=== PATIENT | female | born 1970 | race Caucasian/White ===

== ENCOUNTER 2024-10-24 13:12 | Outpatient (AMB) | payer MEDICARE, MEDICAID, SELFPAY ==
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
[2024-10-24 13:53] VITALS: BP 100/76; PULSE 66; RESP 16; TEMP 36.5; O2SAT 99
== END 2024-10-24 14:33 | disposition home or self-care (01) ==
LOC: HO.HMCFMS 13:13
PROVIDERS: Visit Provider Student in an Organized Health Care Education/Training Program
DX: F17.210 Nicotine dependence, cigarettes, uncomplicated (principal); S03.00XA Dislocation of jaw, unspecified side, initial encounter; R42 Dizziness and giddiness; R51.9 Headache, unspecified; Z96.22 Myringotomy tube(s) status; H66.90 Otitis media, unspecified, unspecified ear; J31.0 Chronic rhinitis; F43.10 Post-traumatic stress disorder, unspecified; K58.9 Irritable bowel syndrome, unspecified; K59.9 Functional intestinal disorder, unspecified; Z86.2 Personal history of diseases of the blood and blood-forming organs and certain disorders involving the immune mechanism; Z86.59 Personal history of other mental and behavioral disorders

== ENCOUNTER 2024-10-24 13:12 | Outpatient (REF) | payer MEDICARE, MEDICAID, SELFPAY ==
[2024-10-24 18:02] LABS: MANUAL DIFF FLAG NO
[2024-10-24 18:03] LABS: Hematocrit 38.7 % (37.0-47.0); Hemoglobin 12.7 g/dl (12.0-16.0); Imm Gran Abs Auto 0.02 X10*3/uL (0.00-0.03); Imm Gran Pct Auto 0.2 % (0.0-0.4); Lymphocytes Absolute Auto 3.1 X10*3/uL (1.2-4.9); Mean Corpuscular HGB Conc 32.8 g/dl (31.0-35.0); Mean Corpuscular Hemoglobin 30.0 pg (27.0-33.0); Mean Corpuscular Volume 91.5 fL (80.0-98.0); NRBC Abs Auto 0.000 X10*3/uL (0.0-0.012); NRBC Pct Auto 0.0 /100WBC (0.0-0.2); Platelet Count 281 X10*3/uL (160-400); Red Blood Count 4.23 X10*6/uL (4.20-5.50); White Blood Count 9.6 X10*3/uL (4.8-10.8)
[2024-10-24 18:53] LABS: Alanine Aminotransferase 19 U/L (0-31); Albumin Level 4.0 g/dL (3.5-5.0); Alkaline Phosphatase 93 U/L (39-117); Anion Gap 14 (12-20); Aspartate Amino Transferase 26 U/L (5-31); Blood Urea Nitrogen 9 mg/dL (9-16); Calcium 8.9 mg/dL (8.4-10.2); Carbon Dioxide 28 mmol/L (22-29); Chloride 104 mmol/L (96-108); Cholesterol 239 mg/dL (<200); Estimated Glomerular Filt Rate > 60; HDL Cholesterol 45 mg/dL (>40); Magnesium 2.2 mg/dL (1.6-2.6); Potassium 4.1 mmol/L (3.3-5.1); Sodium 142 mmol/L (135-145); Total Protein 7.0 g/dL (6.5-8.0); Triglycerides 225 mg/dL (<150)
[2024-10-24 19:13] LABS: Folate 4.5 ng/mL (> or = 4.0); Vitamin B12 327 pg/mL (200-900)
[2024-10-25 09:30] LABS: Syphilis Screen Nonreactive (Nonreactive)
[2024-10-25 09:49] LABS: HBS Num1 0.00 mIU/mL (0-7.99); HBsAGNum1 0.40 S/CO (0.00-0.99); HIV Num 1 0.09 S/CO (0.00-0.99); Hepatitis B Surface Antigen Negative (Negative); ~HepC Num1 0.09 S/CO (0.00-0.79); ~Hepatitis B Surface Antibody NONREACTIVE (Nonreactive); ~Hepatitis C Antibody Nonreactive (Nonreactive)
[2024-10-28 18:47] LABS: Vit B3 - Nicotinic Acid <20 ng/mL (see note)
[2024-10-29 19:09] LABS: Chlamydia Trachomatis IgA <1:16 titer (<1:16)
[2024-10-30 16:39] LABS: VITAMIN D (1,25 OH) D3 11 pg/mL; Vit D (1,25-Dihydroxy) Total 39 pg/mL (18-72); Vitamin D (1,25 OH) D2 28 pg/mL
== END 2024-10-24 13:13 | disposition home or self-care (01) ==
LOC: HO.HKASLDS 13:12
PROVIDERS: Visit Provider Student in an Organized Health Care Education/Training Program
DX: Z76.89 Persons encountering health services in other specified circumstances (principal); Z01.89 Encounter for other specified special examinations; Z13.6 Encounter for screening for cardiovascular disorders; Z11.3 Encounter for screening for infections with a predominantly sexual mode of transmission; Z13.31 Encounter for screening for depression; Z13.1 Encounter for screening for diabetes mellitus; Z13.220 Encounter for screening for lipoid disorders; Z71.9 Counseling, unspecified; Z13.9 Encounter for screening, unspecified; Z12.31 Encounter for screening mammogram for malignant neoplasm of breast; S03.00XA Dislocation of jaw, unspecified side, initial encounter; R42 Dizziness and giddiness; R51.9 Headache, unspecified; H66.90 Otitis media, unspecified, unspecified ear; J31.0 Chronic rhinitis; F43.10 Post-traumatic stress disorder, unspecified; K58.9 Irritable bowel syndrome, unspecified; K59.9 Functional intestinal disorder, unspecified; F17.210 Nicotine dependence, cigarettes, uncomplicated; Z86.2 Personal history of diseases of the blood and blood-forming organs and certain disorders involving the immune mechanism; Z96.22 Myringotomy tube(s) status; Z86.59 Personal history of other mental and behavioral disorders; Z79.899 Other long term (current) drug therapy
CPT/HCPCS: 36415; 80053; 80061; 82607; 82652; 82746; 83036; 83735; 84252; 84425; 84443; 84591; 85025; 86631; 86632; 86706; 86780; 86803; 87340; 87389; 99202

== ENCOUNTER 2024-11-03 14:29 | Outpatient (AMB) | payer MEDICARE, MEDICAID, SELFPAY ==
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
[2024-11-03 14:37] VITALS: BP 101/51; PULSE 74; RESP 16; TEMP 36.6; O2SAT 99
== END 2024-11-03 15:20 | disposition home or self-care (01) ==
LOC: HO.HMCFMS 14:30
PROVIDERS: Visit Provider Student in an Organized Health Care Education/Training Program
DX: R73.03 Prediabetes (principal); E78.2 Mixed hyperlipidemia; E78.00 Pure hypercholesterolemia, unspecified; E56.9 Vitamin deficiency, unspecified; R21 Rash and other nonspecific skin eruption; D51.0 Vitamin B12 deficiency anemia due to intrinsic factor deficiency

== ENCOUNTER → 2024-11-03 14:29 | Outpatient (BNVA) | payer MEDICARE, MEDICAID, SELFPAY | PROVIDERS: Visit Provider Student in an Organized Health Care Education/Training Program | DX: R73.03 Prediabetes (principal); E78.2 Mixed hyperlipidemia; E78.00 Pure hypercholesterolemia, unspecified; E56.9 Vitamin deficiency, unspecified; R21 Rash and other nonspecific skin eruption; D51.0 Vitamin B12 deficiency anemia due to intrinsic factor deficiency; K58.9 Irritable bowel syndrome, unspecified; K59.9 Functional intestinal disorder, unspecified; Z86.2 Personal history of diseases of the blood and blood-forming organs and certain disorders involving the immune mechanism; Z86.59 Personal history of other mental and behavioral disorders; Z79.899 Other long term (current) drug therapy; Z13.31 Encounter for screening for depression | CPT/HCPCS: 96127; 99212 ==

== ENCOUNTER 2024-11-26 12:35 | Outpatient (REF) | payer MEDICARE, MEDICAID, SELFPAY ==
[2024-11-26 13:27] LABS: Hematocrit 39.7 % (37.0-47.0); Hemoglobin 12.8 g/dl (12.0-16.0); Mean Corpuscular HGB Conc 32.2 g/dl (31.0-35.0); Mean Corpuscular Hemoglobin 29.6 pg (27.0-33.0); Mean Corpuscular Volume 91.9 fL (80.0-98.0); NRBC Abs Auto 0.000 X10*3/uL (0.0-0.012); NRBC Pct Auto 0.0 /100WBC (0.0-0.2); Platelet Count 266 X10*3/uL (160-400); Red Blood Count 4.32 X10*6/uL (4.20-5.50); White Blood Count 11.0 X10*3/uL (4.8-10.8)
[2024-11-26 14:15] LABS: Alanine Aminotransferase 16 U/L (0-31); Albumin Level 4.1 g/dL (3.5-5.0); Alkaline Phosphatase 95 U/L (39-117); Anion Gap 10 (12-20); Aspartate Amino Transferase 21 U/L (5-31); Blood Urea Nitrogen 12 mg/dL (9-16); Calcium 9.5 mg/dL (8.4-10.2); Carbon Dioxide 31 mmol/L (22-29); Chloride 105 mmol/L (96-108); Estimated Glomerular Filt Rate > 60; Ferritin 161 ng/mL (10-250); Potassium 4.6 mmol/L (3.3-5.1); Sodium 141 mmol/L (135-145); Total Protein 7.0 g/dL (6.5-8.0)
[2024-11-26 14:23] LABS: Vitamin B12 970 pg/mL (200-900)
[2024-11-27 06:33] LABS: Lyme Abs Screen <0.90 index
== END 2024-11-26 12:36 | disposition home or self-care (01) ==
LOC: HO.10HDL 12:35
PROVIDERS: Visit Provider Physician Assistant Medical
DX: R73.03 Prediabetes (principal); R53.83 Other fatigue; K59.09 Other constipation; K21.9 Gastro-esophageal reflux disease without esophagitis; I10 Essential (primary) hypertension; D64.9 Anemia, unspecified; F41.9 Anxiety disorder, unspecified; F43.10 Post-traumatic stress disorder, unspecified; K58.9 Irritable bowel syndrome, unspecified; E56.9 Vitamin deficiency, unspecified; R51.9 Headache, unspecified; F50.00 Anorexia nervosa, unspecified; J30.9 Allergic rhinitis, unspecified; T14.8XXA Other injury of unspecified body region, initial encounter; W57.XXXA Bitten or stung by nonvenomous insect and other nonvenomous arthropods, initial encounter; Y93.9 Activity, unspecified; Y92.9 Unspecified place or not applicable; Y99.9 Unspecified external cause status
CPT/HCPCS: 36415; 80053; 82306; 82607; 82728; 83036; 84252; 84425; 84443; 85027; 86617; 86618; 96127

== ENCOUNTER 2024-12-23 09:49 | Outpatient (AMB) | payer MEDICARE, MEDICAID, SELFPAY ==
[2024-12-23 10:10] VITALS: BP 120/78; PULSE 78; O2SAT 100; BMI 25.4
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
== END 2024-12-23 11:43 | disposition home or self-care (01) ==
LOC: HO.HSMS 09:50
PROVIDERS: Visit Provider Nurse Practitioner Family
DX: R51.9 Headache, unspecified (principal); H81.10 Benign paroxysmal vertigo, unspecified ear; R06.83 Snoring; G47.19 Other hypersomnia; G47.9 Sleep disorder, unspecified; G43.001 Migraine without aura, not intractable, with status migrainosus
CPT/HCPCS: 99204

== ENCOUNTER → 2024-12-23 09:49 | Outpatient (BNVA) | payer MEDICARE, MEDICAID, SELFPAY | PROVIDERS: Visit Provider Nurse Practitioner Family | DX: G44.229 Chronic tension-type headache, not intractable (principal); R42 Dizziness and giddiness; Z72.0 Tobacco use; F10.11 Alcohol abuse, in remission; R06.83 Snoring; G43.001 Migraine without aura, not intractable, with status migrainosus; G47.19 Other hypersomnia | CPT/HCPCS: 99202 ==

== ENCOUNTER 2024-12-30 13:15 | Outpatient (REF) | payer MEDICARE, MEDICAID, SELFPAY ==
[2024-12-30 16:04] LABS: Vitamin B12 368 pg/mL (200-900)
== END 2024-12-30 13:16 | disposition home or self-care (01) ==
LOC: HO.LAB 13:15
PROVIDERS: PCP Physician Assistant Medical; Visit Provider Physician Assistant Medical
DX: K21.9 Gastro-esophageal reflux disease without esophagitis (principal); R73.03 Prediabetes; E55.9 Vitamin D deficiency, unspecified; F41.9 Anxiety disorder, unspecified; G47.00 Insomnia, unspecified; E78.5 Hyperlipidemia, unspecified; K59.09 Other constipation; E56.9 Vitamin deficiency, unspecified; R79.89 Other specified abnormal findings of blood chemistry; K58.9 Irritable bowel syndrome, unspecified; Z79.899 Other long term (current) drug therapy
CPT/HCPCS: 36415; 82306; 82607; 84252

== ENCOUNTER 2025-01-20 11:51 | Outpatient (REF) | payer MEDICARE, MEDICAID, SELFPAY ==
[2025-01-20 13:11] LABS: Hematocrit 37.6 % (37.0-47.0); Hemoglobin 12.5 g/dl (12.0-16.0); Mean Corpuscular HGB Conc 33.2 g/dl (31.0-35.0); Mean Corpuscular Hemoglobin 29.6 pg (27.0-33.0); Mean Corpuscular Volume 89.1 fL (80.0-98.0); NRBC Abs Auto 0.000 X10*3/uL (0.0-0.012); NRBC Pct Auto 0.0 /100WBC (0.0-0.2); Platelet Count 274 X10*3/uL (160-400); Red Blood Count 4.22 X10*6/uL (4.20-5.50); White Blood Count 9.8 X10*3/uL (4.8-10.8)
[2025-01-20 13:42] LABS: Ferritin 138 ng/mL (10-250)
[2025-01-20 13:53] LABS: Erythrocyte Sedimentation Rate 11 MM/HR (0-20)
[2025-01-20 14:01] LABS: Folate 3.7 ng/mL (> or = 4.0); Vitamin B12 313 pg/mL (200-900)
== END 2025-01-20 11:52 | disposition home or self-care (01) ==
LOC: HO.10HDL 11:51
PROVIDERS: Visit Provider Physician Assistant Medical
DX: R73.03 Prediabetes (principal); D64.9 Anemia, unspecified; M25.50 Pain in unspecified joint
CPT/HCPCS: 36415; 82607; 82728; 82746; 82947; 83036; 85027; 85652; 86141

== ENCOUNTER → 2025-01-28 12:38 | Outpatient (BNV) | payer MEDICARE, MEDICAID, SELFPAY | PROVIDERS: PCP Physician Assistant Medical; Visit Provider Radiology Diagnostic Radiology | DX: G31.9 Degenerative disease of nervous system, unspecified (principal) | CPT/HCPCS: 70553 ==

== ENCOUNTER 2025-01-28 12:43 | Outpatient (REF) | payer MEDICARE, MEDICAID, SELFPAY ==
--- NOTE | ~2025-01-28 | MR_ITS ---
EXAMINATION: MR BRAIN IAC PROTOCOL WITHOUT AND WITH CONTRAST CLINICAL INFORMATION: Headache. Benign paroxysmal vertigo. COMPARISON: None available. TECHNIQUE: Multiplanar, multisequence MRI of the brain IAC protocol was obtained before and after the intravenous administration of 6.0 mL gadolinium based (Gadavist) without reported immediate complications.. FINDINGS: The cochlear and vestibular components of the 8th cranial nerves demonstrated no signal abnormality or enhancing lesion. No enhancing lesion at the cerebellopontine angle cistern. The anterior inferior cerebral arteries are type I, bilaterally. The Meckel's caves, cisterns segments and entry zones of the trigeminal nerves are normal. No enhancing mass or signal abnormality in the brainstem. Normal position of the internal jugular bulbs. No restricted diffusion. Craniocervical junction is intact with normal position of the cerebellar tonsils. Sellar/suprasellar region is normal. Asymmetric, nonenhancing or restricted diffusion hypointense FLAIR slightly hyperintense T2 signal in the anterior hippocampus. Flow-void signal within the main cerebral vessels is normal. Prominence of the extra-axial CSF spaces cerebral sulci involving bifrontal lobes. Jackson-white matter differentiation is normal. No abnormal enhancement within the intra-axial or extra-axial compartment of the cranium based upon axial T1 postcontrast sequence MR/MR head/brain wo/w con IMPRESSION: No vestibular schwannoma. Bifrontal lobe atrophy. Nonspecific signal abnormality without enhancement or restricted diffusion, anterior right hippocampus. Electronically signed by: Jose Ayala MD 01/28/2025 01:56 PM [facility] [place], [place]
== END 2025-01-28 12:44 ==
LOC: HO.MRI 12:43
PROVIDERS: PCP Physician Assistant Medical; Visit Provider Nurse Practitioner Family
DX: H81.10 Benign paroxysmal vertigo, unspecified ear (principal); R51.9 Headache, unspecified; J30.9 Allergic rhinitis, unspecified
CPT/HCPCS: 70553; A9585